=== PATIENT | female | born 1980 | race Caucasian/White ===

== ENCOUNTER 2023-02-11 18:03 | Emergency (ER) | payer BC ==
[2023-02-11] MEDS: methylPREDNISolone Sodium Succinate 125 MG/2 ML SDV IM ONE (18:10)
[2023-02-11] MEDS: Cetirizine 10 MG Tab PO ONE (19:36)
[2023-02-11] MEDS ORDERED: predniSONE 10 MG Tab ONE (19:37)
[2023-02-11] MEDS: Cetirizine 10 MG Tab ONE (19:48)
[2023-02-11 20:08] VITALS: BP 152/92; PULSE 64
== END 2023-02-11 20:00 | disposition home or self-care (01) ==
LOC: LB.ED 18:03
DX: T78.40XA Allergy, unspecified, initial encounter (principal); Z91.011 Allergy to milk products; Z88.8 Allergy status to other drugs, medicaments and biological substances; Z79.899 Other long term (current) drug therapy
CPT/HCPCS: 96372; 99283; A9270-GY; J2930; J7512